=== PATIENT | female | born 1955 | race Caucasian/White ===

== ENCOUNTER 2017-03-07 09:25 | Emergency (ER) | payer SELFPAY ==
[~2017-03-07] VITALS: Ht 172.7 cm; Wt 102.1 kg
[~2017-03-07 09:25] MED LIST: ACYC800T PO; LD5O35 EXT; TRAM50TA2; [UNRECOGNIZED DRUG - CODE] SQ
--- NOTE | 2017-03-07 10:46 | ED Lower Extremity ---
General Chief Complaint: Lower Extremity Stated Complaint: POSS JAMMED KNEE Nursing Triage Note: TO ROOM PER W/C PATIENT REPORTS THAT WAS WALKING UP STAIRS AND JAMMED L KNEE NO [facility]IN [facility] Seps[facility] Screen: No Definite Risk Source: patient Exam Limitations: no limitations History of Present Illness Time seen by provider: 10:40 Initial Comments Pt was taking her dogs outside last night at 0130. While walking down her steps she "jammed" the left knee. Did not fall. Has been unable to bear weight on it since the injury. Onset: this evening Severity: moderate Method of Injury: unknown Modifying Factors: Improves With Movement Allergies and Home Medications Allergies Coded Allergies: codeine (Unverified Allergy, Severe, throat closes up, 06/27/10) aspirin (Unverified Adverse Reaction, Mild, upset stomach, 06/27/10) Constitutional: see HPI EENTM: see HPI Respiratory: no symptoms reported Cardiovascular: no symptoms reported Genitourinary: no symptoms reported Musculoskeletal: see HPI, joint pain, joint swelling Skin: no symptoms reported Past Ymjlfcy-Vacpho-Hcjgum Hx Patient Social History Alcohol Use: Denies Use Recreational Drug Use: No Smoking Status: Never a Smoker Recent Foreign Travel: No Contact w/Someone Who Travel: No Recent Infectious Disease Expo: No Surgeries History of Surgeries: No Cardiovascular History of Cardiac Disorders: No Neurological History of Neurological Disord: No Genitourinary History of Genitourinary Disor: No Gastrointestinal History of Gastrointestinal Di: No Endocrine History of Endocrine Disorders: No Integumentary History of Skin or Integumenta: No Physical Exam Vital Signs Vital Sign - Last 12Hours 03/07/17 09:45 Temp 98.2 Pulse 87 Resp 18 B/P (MAP) 118/88 (98) Pulse Ox 96 O2 Delivery Room Air Capillary Refill : Less Than 3 Seconds General Appearance: WD/WN, no apparent distress HEENT: PERRL/EOMI, normal ENT inspection Neck: non-tender, full range of motion Respiratory: no respiratory distress, no accessory muscle use Gastrointestinal: normal bowel sounds, non tender Hips: bilateral hip non-tender, bilateral hip normal inspection, bilateral hip normal range of motion Legs: bilateral leg non-tender, bilateral leg normal inspection, bilateral leg normal range of motion Knees: left knee pain, left knee soft tissue tenderness, left knee other (no swelling or obvious effusion palpable) Ankles: bilateral ankle non-tender, bilateral ankle normal inspection, bilateral ankle normal range of motion Feet: bilateral foot non-tender, bilateral foot normal inspection, bilateral foot normal range of motion Neurologic/Psychiatric: alert, normal mood/affect, oriented x 3 Skin: normal color, warm/dry Progress/Results/Core Measures Results/Orders My Orders Orders - AWILDA THOMAS APRN Knee, Left, 3 Views (03/07/17 10:23) Vital Signs/I&O Vital Sign - Last 12Hours 03/07/17 09:45 Temp 98.2 Pulse 87 Resp 18 B/P (MAP) 118/88 (98) Pulse Ox 96 O2 Delivery Room Air Blood Pressure Mean: 98 Departure Impression Impression: Primary Impression: Internal derangement of knee Disposition: HOME, SELF-CARE Condition: Stable Departure-Patient Inst. Decision time for Depature: 10:46 Referrals: RIP ARIAS MD (PCP) Primary Care Physician MICHELLE LAGUERRE DO (Family) Primary Care Physician Patient Instructions: Internal Derangement of the Knee Add. Discharge Instructions: 1. Follow up with your doctor next week to discuss obtaining MRI if the pain persists 2. crutches as needed 3. Motrin in addition to the prescribed pain medication. All discharge instructions reviewed with patient and/or family. Voiced understanding. Scripts Hydrocodone/Acetaminophen (V[place]ia 5-325 Tablet) 1 Each Tablet 1 EACH PO Q4H Y for PAIN-SEVERE TO BREAKTHROUGH, #10 TAB Prov: AWILDA THOMAS APRN 03/07/17 Work/School Note: Work Release Form Date Seen in the Emergency Department: Mar 07, 2017 Return to Work: Mar 11, 2017 Restrictions: No Restrictions AWILDA THOMAS APRN Mar 07, 2017 10:46
[2017-03-07] MEDS ORDERED: HYDR-757 PO (10:47)
--- NOTE | 2017-03-07 10:57 | Diagnostic Imaging Report ---
EXAMINATION: Three views of the left knee. INDICATION: Fall. FINDINGS: There is no fracture, dislocation or radiopaque foreign body. There is mild osteophyte formation at the medial compartment. No significant joint space loss. There is a suggestion of minimal joint effusion. IMPRESSION: Mild degenerative changes. Minimal suprapatellar effusion. Dictated by: Dictated on workstation # [id number]
--- OUTSIDE RECORDS SUMMARY | 2017-03-07 10:59 | XMS REPORT ---
Author Author JACQUELINE WEST [facility] Address [address] [place] [address] Care Team Providers Care Fur Trapper Name Role Phone JACQUELINE WEST Unavailable PROBLEMS Type Condition ICD9-CM Code [id number] Code Onset Dates Condition Status SNOMED Code Problem Chest pain, unspecified R07.9 Active 57229913 Problem Chest pain, unspecified 786.50 Active 83579902 ALLERGIES Unknown Allergies SOCIAL HISTORY No smoking Hx information available PLAN OF CARE VITAL SIGNS MEDICATIONS Medication Instructions Dosage Frequency Start Date End Date Duration Status Clindamycin HCl 150 MG Orally every 6 hrs 2 capsules 6h Oct, Nov, 10 days Active RESULTS No Results PROCEDURES No Known procedures IMMUNIZATIONS No Known Immunizations
--- OUTSIDE RECORDS SUMMARY | 2017-03-07 10:59 | XMS REPORT ---
Author Author ASHLEY BEGUM Organization [facility] Address [address] [place] [address] Care Team Providers Care System Development Engineer Name Role Phone ASHLEY BEGUM Unavailable PROBLEMS Type Condition ICD9-CM Code [id number] Code Onset Dates Condition Status SNOMED Code Problem Chest pain, unspecified 786.50 Active 88161331 Problem Dental examination Z01.20 Active 655903459 Problem Dental caries, unspecified K02.9 Active 57398547 Problem Chronic fatigue R53.82 Active 89169603 Problem Chest pain, unspecified R07.9 Active 17128559 Problem Periapical abscess without sinus K04.7 Active 049816182 Problem Gingivitis K05.10 Active 31779507 ALLERGIES Substance Reaction Event Type Date Status Wasp Venom Unknown Drug Allergy July, Active Penicillin V Potassium Unknown Drug Allergy July, Active Peanut Butter Flavor Unknown Drug Allergy July, Active Codeine Sulfate rash/SOB Drug Allergy July, Active Bee Pollen Unknown Drug Allergy July, Active Aspirin nausea/vomiting Drug Allergy July, Active Sulfa Drugs Unknown Non Drug Allergy July, Active SOCIAL HISTORY Never Assessed PLAN OF CARE Activity Details Follow Up prn Reason:TE remaining teeth VITAL SIGNS Blood pressure systolic 129 mmHg 2016-07-24 Blood pressure diastolic 86 mmHg 2016-07-24 MEDICATIONS Medication Instructions Dosage Frequency Start Date End Date Duration Status Ibuprofen 800 MG Orally Three times a day 1 tablet 8h Active Tramadol HCl 50 MG Orally every 6 hrs 1 tablet as needed 6h Jan, Active RESULTS No Results PROCEDURES Procedure Date Ordered Result Body Site LTD ORAL EVALUATION - PROBLEM FOCUS July 24, 2016 INTRAORL-PERIAPICAL 1 FILM 57915 July 24, 2016 PANORAMIC FILM SEE ALSO CODE 94756 July 24, 2016 INTRAORL-PERIAPICAL EA ADD FILM July 24, 2016 IMMUNIZATIONS No Known Immunizations MEDICAL (GENERAL) HISTORY Type Description Date Medical History arthritis Medical History Hep C-No longer detectable, went to [facility] Medical History sepsis from teeth Surgical History hysterectomy Surgical History tonsillectomy Surgical History repair of stomach lining Hospitalization History surgeries
--- OUTSIDE RECORDS SUMMARY | 2017-03-07 10:59 | XMS REPORT ---
Author Author JACQUELINE WEST Organization [employer] Address Unknown Phone Unavailable Care Team Providers Care Senior Data Warehouse Developer Name Role Phone JACQUELINE WEST CP Unavailable Allergies, Adverse Reactions, Alerts Substance Reaction Event Type Wasp Venom Info Not Available Drug Allergy Penicillin V Potassium Info Not Available Drug Allergy Peanut Butter Flavor Info Not Available Drug Allergy Codeine Sulfate rash/SOB Drug Allergy Bee Pollen Info Not Available Drug Allergy Aspirin nausea/vomiting Drug Allergy Problems Problem Type Condition Code Onset Dates Condition Status Assessment Periodontal abscess K05.21 Active Assessment Pain in left axilla M79.622 Active Problem Chest pain, unspecified 786.50 Active Medications Medication Code System Code Instructions Start Date End Date Status Dosage Ibuprofen [facility] [address]-78 800 MG Orally Three times a day 1 tablet Clindamycin HCl [facility] [address]-57 150 MG Orally every 6 hrs 2015 Oct 17, 2015 2 capsules Tramadol HCl [facility] [address]-18 50 MG Orally every 6 hrs Feb 09, 2015 1 tablet as needed Procedures Procedure Coding System Code Date Office Visit, Est Pt., Level 3 CPT-4 92477 2015 Vital Signs Date/Time: 2015 Cardiac Monitoring Heart Rate 88 bpm Weight 224.5 lbs Height 68 in Blood Pressure Diastolic 80 mmHg Blood Pressure Systolic 124 mmHg Results No Known Results Summary Purpose eClinical[employer] Submission
--- OUTSIDE RECORDS SUMMARY | 2017-03-07 10:59 | XMS REPORT ---
Author Author PARADAMARY BROWNE Organization [facility] Address [address] [place] [address] Care Team Providers Care Cloth Feeder Name Role Phone MALGORZATA PARADA Unavailable PROBLEMS Type Condition ICD9-CM Code OVV59-ZA Code Onset Dates Condition Status SNOMED Code Problem Chest pain, unspecified 786.50 Active 75174250 Problem Dental examination Z01.20 Active 630308320 Problem Dental caries, unspecified K02.9 Active 70874290 Problem Chronic fatigue R53.82 Active 73226351 Problem Chest pain, unspecified R07.9 Active 66003504 Problem Periapical abscess without sinus K04.7 Active 479519260 Problem Gingivitis K05.10 Active 90726281 ALLERGIES Substance Reaction Event Type Date Status Wasp Venom Unknown Drug Allergy May, Active Penicillin V Potassium Unknown Drug Allergy May, Active Peanut Butter Flavor Unknown Drug Allergy May, Active Codeine Sulfate rash/SOB Drug Allergy May, Active Bee Pollen Unknown Drug Allergy May, Active Aspirin nausea/vomiting Drug Allergy May, Active Sulfa Drugs Unknown Non Drug Allergy May, Active SOCIAL HISTORY Never Assessed PLAN OF CARE Activity Details Follow Up 2 Weeks Reason: VITAL SIGNS Height 68 in 2016-06-07 Weight 240 lbs 2016-06-07 Temperature 97.7 degrees Fahrenheit 2016-06-07 Heart Rate 84 bpm 2016-06-07 Respiratory Rate 20 2016-06-07 BMI 36.49 kg/m2 2016-06-07 Blood pressure systolic 128 mmHg 2016-06-07 Blood pressure diastolic 82 mmHg 2016-06-07 MEDICATIONS Medication Instructions Dosage Frequency Start Date End Date Duration Status Ibuprofen 800 MG Orally Three times a day 1 tablet 8h Active Clindamycin HCl 300 MG Orally every 8 hrs 1 capsule 8h May,Jun 10 days Active Tramadol HCl 50 MG Orally every 6 hrs 1 tablet as needed 6h Jan, Active RESULTS Name Result Date Reference Range CBC 2016-06-07 WBC 10.7 3.4-10.8 RBC 4.74 3.77-5.28 Hemoglobin 14.3 11.1-15.9 Hematocrit 41.6 34.0-46.6 MCV 88 79-97 MCH 30.2 26.6-33.0 MCHC 34.4 31.5-35.7 RDW 14.4 12.3-15.4 Platelets 321 150-379 Neutrophils 57 Lymphs 34 Monocytes 6 Eos 2 Basos 1 Immature Cells Neutrophils (Absolute) 6.0 1.4-7.0 Lymphs (Absolute) 3.7 0.7-3.1 Monocytes(Absolute) 0.7 0.1-0.9 Eos (Absolute) 0.2 0.0-0.4 Baso (Absolute) 0.1 0.0-0.2 Immature Granulocytes 0 Immature Grans (Abs) 0.0 0.0-0.1 NRBC Hematology Comments: PROCEDURES Procedure Date Ordered Result Body Site COMPLETE CBC W/AUTO DIFF WBC June 07, 2016 VENIPUNCT, ROUTINE* June 07, 2016 IMMUNIZATIONS No Known Immunizations MEDICAL (GENERAL) HISTORY Type Description Date Medical History arthritis Medical History Hep C-No longer detectable, went to [facility] Medical History sepsis from teeth Surgical History hysterectomy Surgical History tonsillectomy Surgical History repair of stomach lining Hospitalization History surgeries
--- OUTSIDE RECORDS SUMMARY | 2017-03-07 10:59 | XMS REPORT ---
Author Author MALGORZATA PARADA [facility] [employer] Address Unknown Phone Unavailable Care Team Providers Care Glass Smoother Name Role Phone MALGORZATA PARADA Unavailable Allergies No Known Allergies Problems Problem Type Condition Code Onset Dates Condition Status Problem Chest pain, unspecified 786.50 Active Assessment Breast pain N64.4 Active Problem Chest pain, unspecified R07.9 Active Medications No Known Medications Results No Known Results Summary Purpose [employer] Submission
--- OUTSIDE RECORDS SUMMARY | 2017-03-07 10:59 | XMS REPORT ---
Author Author JACQUELINE WEST Organization [employer] Address Unknown Phone Unavailable Care Team Providers Care Set Up Mechanic Stamping Machines Name Role Phone JACQUELINE WEST CP Unavailable [...] Condition Code Onset Dates Condition Status Assessment Other chest pain R07.89 Active Assessment Neck pain M54.2 Active Problem Chest pain, unspecified 786.50 Active Assessment Knee pain M25.569 Active Medications Medication Code System Code Instructions Start Date End Date Status Dosage Tramadol HCl [facility] [address]-66 50 MG Orally every 6 hrs Feb 09, 2015 1 tablet as needed Ibuprofen [facility] [address]-60 800 MG Orally Three times a day Feb 09, 2015 June 09, 2015 1 tablet Procedures Procedure Coding System Code Date Office Visit, Est Pt., Level 3 CPT-4 43887 Feb 09, 2015 Vital Signs Date/Time: Feb 09, 2015 Temperature 97.9 F Weight 229.5 lbs Height 68 in BMI 34.89 Index Blood Pressure Diastolic 82 mmHg Blood Pressure Systolic 134 mmHg Cardiac Monitoring Heart Rate 88 bpm Results No Known Results Summary Purpose [employer] Submission
--- OUTSIDE RECORDS SUMMARY | 2017-03-07 10:59 | XMS REPORT ---
Author Author JACQUELINE WEST Organization [employer] Address Unknown Phone Unavailable Care Team Providers Care Cloth Dyer Name Role Phone JACQUELINE WEST CP Unavailable [...] Problem Chest pain, unspecified 786.50 Active Assessment Chest pain, unspecified R07.9 Active Problem Chest pain, unspecified R07.9 Active Medications Medication Code System Code Instructions Start Date End Date Status Dosage Ibuprofen [facility] [address]-55 800 MG Orally Three times a day 1 tablet Tramadol HCl [facility] [address]-22 50 MG Orally every 6 hrs Feb 09, 2015 1 tablet as needed Clindamycin HCl [facility] [address]-56 150 MG Orally every 6 hrs Oct 21, 2015 Oct 31, 2015 2 capsules Procedures Procedure Coding System Code Date Office Visit, Est Pt., Level 3 CPT-4 55112 Oct 21, 2015 Vital Signs Date/Time: Oct 21, 2015 Cardiac Monitoring Heart Rate 88 bpm Weight 228.6 lbs Height 68 in BMI 34.75 Index Blood Pressure Diastolic 73 mmHg Blood Pressure Systolic 124 mmHg Results No Known Results Summary Purpose [employer] Submission
--- OUTSIDE RECORDS SUMMARY | 2017-03-07 10:59 | XMS REPORT ---
Author Author MATA Carey Organization [facility] Address Unknown Care Team Providers Care Nuclear Instructor Name Role Phone MATA Carey Unavailable PROBLEMS Type Condition ICD9-CM Code [id number] Code Onset Dates Condition Status SNOMED Code Problem Chest pain, unspecified 786.50 Active 51333536 Problem Dental examination Z01.20 Active 462704929 Problem Dental caries, unspecified K02.9 Active 29831721 Problem Chronic fatigue R53.82 Active 41566632 Problem Chest pain, unspecified R07.9 Active 94426551 Problem Periapical abscess without sinus K04.7 Active 022194388 Problem Gingivitis K05.10 Active 45228651 ALLERGIES Substance Reaction Event Type Date Status Wasp Venom Unknown Drug Allergy Jan, Active Penicillin V Potassium Unknown Drug Allergy Jan, Active Peanut Butter Flavor Unknown Drug Allergy Jan, Active Codeine Sulfate rash/SOB Drug Allergy Jan, Active Bee Pollen Unknown Drug Allergy Jan, Active Aspirin nausea/vomiting Drug Allergy Jan, Active Sulfa Drugs Unknown Non Drug Allergy Jan, Active SOCIAL HISTORY No smoking Hx information available PLAN OF CARE Activity Details Follow Up 1 Week Reason:left u/l te VITAL SIGNS Height 68 in 2016-01-25 Blood pressure systolic 136 mmHg 2016-01-25 Blood pressure diastolic 78 mmHg 2016-01-25 MEDICATIONS Medication Instructions Dosage Frequency Start Date End Date Duration Status Tramadol HCl 50 MG Orally every 6 hrs 1 tablet as needed 6h 25 Jan, 2015 Active Ibuprofen 800 MG Orally Three times a day 1 tablet 8h Active RESULTS No Results PROCEDURES Procedure Date Ordered Related Diagnosis Body Site EXTRAC ERUPTED TOOTH/EXPOSED ROOT Jan 25, 2016 EXTRAC ERUPTED TOOTH/EXPOSED ROOT Jan 25, 2016 EXTRAC ERUPTED TOOTH/EXPOSED ROOT Jan 25, 2016 EXTRAC ERUPTED TOOTH/EXPOSED ROOT Jan 25, 2016 IMMUNIZATIONS No Known Immunizations
--- OUTSIDE RECORDS SUMMARY | 2017-03-07 10:59 | XMS REPORT ---
Author Author JACQUELINE WEST [facility] [employer] Address Unknown Phone Unavailable Care Team Providers Care Laboratory Technical Specialist Name Role Phone JACQUELINE WEST CP Unavailable [...] Dates Condition Status Problem Chest pain, unspecified R07.9 Active Problem Chest pain, unspecified 786.50 Active Problem Chronic fatigue R53.82 Active Assessment Chronic fatigue R53.82 Active Medications Medication Code System Code Instructions Start Date End Date Status Dosage Tramadol HCl [facility] [address]-23 50 MG Orally every 6 hrs Feb 09, 2015 1 tablet as needed Ibuprofen [facility] [address]-50 800 MG Orally Three times a day 1 tablet Procedures Procedure Coding System Code Date ASSAY THYROID STIM HORMONE CPT-4 44752 Jan 19, 2016 COMPLETE CBC W/AUTO DIFF WBC CPT-4 71127 Jan 19, 2016 Office Visit, Est Pt., Level 3 CPT-4 61866 Jan 19, 2016 VENIPUNCT, ROUTINE* CPT-4 43150 Jan 19, 2016 COMPREHEN METABOLIC PANEL CPT-4 92221 Jan 19, 2016 Vital Signs Date/Time: Jan 19, 2016 Cardiac Monitoring Heart Rate 84 bpm Weight 231.0 lbs Height 68 in BMI 35.12 Index Blood Pressure Diastolic 82 mmHg Blood Pressure Systolic 129 mmHg Results Name Result Date Reference Range Unit Abnormality Flag CBC ----Lymphs 41 28004584 % ----Neutrophils 49 05955865 % ----Baso (Absolute) 0.1 27151639 0.0-0.2 x10E3/uL ----Hemoglobin 15.2 23493958 11.1-15.9 g/dL ----Eos (Absolute) 0.3 86626504 0.0-0.4 x10E3/uL ----Hematocrit 44.5 40038240 34.0-46.6 % ----Monocytes(Absolute) 0.5 53213461 0.1-0.9 x10E3/uL ----MCV 89 46525733 79-97 fL ----Lymphs (Absolute) 3.6 57517245 0.7-3.1 x10E3/uL H ----MCH 30.2 69533413 26.6-33.0 pg ----Neutrophils (Absolute) 4.3 01089538 1.4-7.0 x10E3/uL ----MCHC 34.2 68642687 31.5-35.7 g/dL ----Immature Granulocytes 0 91242071 % ----Basos 1 24779081 % ----RDW 14.6 04472833 12.3-15.4 % ----Immature Grans (Abs) 0.0 11969274 0.0-0.1 x10E3/uL ----WBC 8.7 63223258 3.4-10.8 x10E3/uL ----Platelets 314 91627327 150-379 x10E3/uL ----Eos 3 28508202 % ----RBC 5.03 83727857 3.77-5.28 x10E6/uL ----Monocytes 6 80815856 % CMP ----Globulin, Total 3.2 35717276 1.5-4.5 g/dL ----eGFR If Africn Am 110 46915733 >59 mL/min/1.73 ----eGFR If NonAfricn Am 95 79643778 >59 mL/min/1.73 ----Albumin, Serum 4.4 01727410 3.5-5.5 g/dL ----Sodium, Serum 142 39823708 136-144 mmol/L ----Protein, Total, Serum 7.6 62719755 6.0-8.5 g/dL ----BUN/Creatinine Ratio 26 34237766 9-23 H ----Calcium, Serum 9.6 94928429 8.7-10.2 mg/dL ----AST (SGOT) 15 34878130 0-40 IU/L ----Glucose, Serum 89 20160119 65-99 mg/dL ----Alkaline Phosphatase, S 72 20160119 39-117 IU/L ----Bilirubin, Total <0.2 20160119 0.0-1.2 mg/dL ----Creatinine, Serum 0.70 20160119 0.57-1.00 mg/dL ----A/G Ratio 1.4 20160119 1.1-2.5 ----BUN 18 20160119 6-24 mg/dL ----Carbon Dioxide, Total 23 20160119 18-29 mmol/L ----ALT (SGPT) 17 20160119 0-32 IU/L ----Potassium, Serum 4.6 20160119 3.5-5.2 mmol/L ----Chloride, Serum 100 20160119 97-106 mmol/L ROUTINE VENIPUNCTURE TSH ----TSH 1.910 12166137 0.450-4.500 uIU/mL Summary Purpose [employer]ClinicalWorks Submission
--- OUTSIDE RECORDS SUMMARY | 2017-03-07 10:59 | XMS REPORT ---
Author Author JACQUELINE WEST Organization [employer] Address Unknown Phone Unavailable Care Team Providers Care Landscape Architecture Professor Name Role Phone JACQUELINE WEST CP Unavailable Allergies No Known Allergies Problems Problem Type Condition Code Onset Dates Condition Status Problem Chest pain, unspecified 786.50 Active Problem Chest pain, unspecified R07.9 Active Medications Medication Code System Code Instructions Start Date End Date Status Dosage Bactrim DS [facility] [address]-49 800-160 MG Orally Twice a day Jan 05, 2016 Jan 15, 2016 1 tablet Results No Known Results Summary Purpose [employer] Submission
--- OUTSIDE RECORDS SUMMARY | 2017-03-07 10:59 | XMS REPORT ---
Author Author JACQUELINE WEST Organization [employer] Address Unknown Phone Unavailable Care Team Providers Care Psychiatric Lpn Name Role Phone JACQUELINE WEST CP Unavailable Allergies No Known Allergies Problems Problem Type Condition Code Onset Dates Condition Status Problem Chest pain, unspecified 786.50 Active Problem Chest pain, unspecified R07.9 Active Medications No Known Medications Results No Known Results Summary Purpose [employer] Submission
--- OUTSIDE RECORDS SUMMARY | 2017-03-07 10:59 | XMS REPORT ---
Author MATA Devine [facility] [employer] Address Unknown Phone Unavailable Care Team Providers Care Farm Manager Name Role Phone MATA MEADOWS CP Unavailable Allergies, Adverse Reactions, Alerts Substance [...] Problem Chest pain, unspecified 786.50 Active Assessment Dental examination Z01.20 Active Problem Chest pain, unspecified R07.9 Active Assessment Dental caries K02.9 Active Medications Medication Code System Code Instructions Start Date End Date Status Dosage Ibuprofen [facility] [address]-25 800 MG Orally Three times a day 1 tablet Clindamycin HCl [facility] [address]-90 150 MG Orally every 6 hrs Oct 21, 2015 Dec 05, 2015 2 capsules Tramadol HCl [facility] [address]-48 50 MG Orally every 6 hrs Feb 09, 2015 1 tablet as needed Procedures Procedure Coding System Code Date BITEWINGS - FOUR FILMS CPT-4 D0274 Dec 05, 2015 PANORAMIC FILM SEE ALSO CODE 26265 CPT-4 D0330 Dec 05, 2015 COMP ORAL EVALUATION - NEW/EST PT CPT-4 D0150 Dec 05, 2015 EXTRAC ERUPTED TOOTH/EXPOSED ROOT CPT-4 D7140 Dec 05, 2015 EXTRAC ERUPTED TOOTH/EXPOSED ROOT CPT-4 D7140 Dec 05, 2015 Billing Notes on claim CPT-4 EC109 Dec 05, 2015 Vital Signs Date/Time: Dec 05, 2015 Blood Pressure Diastolic 85 mmHg Blood Pressure Systolic 123 mmHg Height 68 in Results No Known Results Summary Purpose eClinicalWorks Submission
--- OUTSIDE RECORDS SUMMARY | 2017-03-07 10:59 | XMS REPORT ---
Author Author JACQUELINE WEST [facility] Address [address] [place] [address] Care Team Providers Care Medical Scribe Name Role Phone JACQUELINE WEST Unavailable PROBLEMS Type Condition ICD9-CM Code [id number] Code Onset Dates Condition Status SNOMED Code Problem Chest pain, unspecified 786.50 Active 21719624 Problem Dental examination Z01.20 Active 721606405 Problem Dental caries, unspecified K02.9 Active 80883229 Problem Chronic fatigue R53.82 Active 54571672 Problem Chest pain, unspecified R07.9 Active 00825520 Problem Periapical abscess without sinus K04.7 Active 051165197 Problem Gingivitis K05.10 Active 64265581 ALLERGIES No Known Allergies SOCIAL HISTORY No smoking Hx information available PLAN OF CARE VITAL SIGNS MEDICATIONS No Known Medications RESULTS No Results PROCEDURES No Known procedures IMMUNIZATIONS No Known Immunizations
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
[2017-03-07 11:13] VITALS: BP 129/62
== END 2017-03-07 11:13 | disposition home or self-care (01) ==
LOC: EDUNIT# 09:25 → ER 09:28
DX: M23.92 Unspecified internal derangement of left knee (principal)
CPT/HCPCS: 73562; 99283

== ENCOUNTER 2017-03-23 02:58 | Emergency (ER) | payer SELFPAY ==
[~2017-03-23] VITALS: Ht 172.7 cm; Wt 104.3 kg
[~2017-03-23 02:58] MED LIST changes: +HYDR-757 PO
--- NOTE | 2017-03-23 03:27 | ED Cough/URI ---
General Chief Complaint: Cough/Cold/Flu Symptoms Stated Complaint: THROAT SWOLLEN Nursing Triage Note: C/O COUGH FOR 12 HOURS. Source: patient History of Present Illness Time seen by provider: 03:15 Initial Comments PT STATES SHE WAS SENT HOME FROM WORK TODAY AT [employer], WITH SUBJECTIVE FEVER AND CHILLS WOKE UP AROUND 2130 COUGHING AND COUGHS SO HARD IT FEELS LIKE HER THROAT IS CLOSING OFF NO ACTUAL THROAT PAIN, JUST FEELS DRY NO CHEST PAIN OR SHORTNESS OF BREATH NO HEADACHE OR BODY ACHES MULTIPLE SICK CONTACTS WITH SAME HAS NOT TAKEN ANYTHING FOR SYMPTOMS PT SMOKES UP TO 3 PPD DENIES BEING DX WITH COPD OR ASTHMA OR ANY RESPIRATORY DISORDERS PCP: REMBERTO-W[facility], COURTNEY WEST Allergies and Home Medications Allergies Coded Allergies: codeine (Unverified Allergy, Severe, throat closes up, 06/27/10) aspirin (Unverified Adverse Reaction, Mild, upset stomach, 06/27/10) Home Medications Benzonatate 100 Mg Capsule, 1-2 TAB PO TID, #30 Prescribed by: LANIE SHELTON on 03/23/17419 Doxycycline Monohydrate 100 Mg Capsule, 100 MG PO BID, #20 Prescribed by: LANIE SHELTON on 03/23/17 0420 Guaifenesin/Dextromethorphan 1 Each Tbmp.12hr, 1 EACH PO BID for 10 Days, #20 Prescribed by: LANIE SHELTON on 03/23/17 0420 Hydrocodone/Acetaminophen 1 Each Tablet, 1 EACH PO Q4H PRN for PAIN-SEVERE TO BREAKTHROUGH, #10 Prescribed by: AWILDA THOMAS on 03/07/17 1047 Methylprednisolone 4 Mg Tab.ds.pk, 4 MG PO UD, #1 Prescribed by: LANIE SHELTON on 03/23/17 0420 Constitutional: see HPI, chills, fever EENTM: see HPI, nose congestion, other (PER HPI) Respiratory: see HPI, cough, No short of breath, No wheezing Cardiovascular: no symptoms reported Gastrointestinal: no symptoms reported Genitourinary: no symptoms reported Musculoskeletal: no symptoms reported Skin: no symptoms reported Psychiatric/Neurological: No Symptoms Reported Hematologic/Lymphatic: No Symptoms Reported Immunological/Allergic: no symptoms reported Past Iajsqcj-Tmintt-Lnrqsh Hx Patient Social History Alcohol Use: Denies Use Recreational Drug Use: No Smoking Status: Current Everyday Smoker (UP TO 3 PPD) Type Used: Cigarettes Recent Foreign Travel: No Contact w/Someone Who Travel: No Recent Infectious Disease Expo: No Physical Abuse: No Sexual Abuse: No Surgeries History of Surgeries: No Respiratory History of Respiratory Disorde: No Cardiovascular History of Cardiac Disorders: No Neurological History of Neurological Disord: No Reproductive System RANGE CONSERVATIONIST History: Menopausal Genitourinary History of Genitourinary Disor: No Gastrointestinal History of Gastrointestinal Di: No Musculoskeletal History of Musculoskeletal Dis: No Endocrine History of Endocrine Disorders: No HEENT History of HEENT Disorders: Yes ("BAD TEETH" ) Cancer History of Cancer: No Psychosocial History of Psychiatric Problem: No Suicide Risk Score: 0 Integumentary History of Skin or Integumenta: No Blood Transfusions History of Blood Disorders: No Physical Exam Vital Signs Vital Sign - Last 12Hours 03/23/17 03:13 Temp 97.0 Pulse 87 Resp 20 B/P (MAP) 132/75 (94) Pulse Ox 98 Capillary Refill : Less Than 3 Seconds General Appearance: WD/WN, no apparent distress, other (FREQUENT HARSH, DRY COUGH) HEENT: PERRL/EOMI, other (TM'S OBSCURED BY CERUMEN, MILD NASAL MUCOSAL EDEMA, CLEAR POST NASAL DRAINAGE; POOR DENTITION WITH MULTIPLE MISSING TEETH AND EXTENSIVE DENTAL DECAY TO REMAINING TEETH) Neck: full range of motion, supple, normal inspection Respiratory: normal breath sounds, no respiratory distress, no accessory muscle use Cardiovascular: regular rate, rhythm, no edema, no murmur Gastrointestinal: normal bowel sounds, non tender, soft Extremities: normal inspection, no pedal edema Neurologic/Psychiatric: certified physician assistant II-XII nml as tested, no motor/sensory deficits, alert, oriented x 3 Skin: normal color Progress/Results/Core Measures Suspected Sepsis Recent Fever Within 48 Hours: No Infection Criteria Present: None New/Unexplained Altered Menta: No Sepsis Screen: No Definite Risk Sepsis Diagnosis: SIRS Temperature:97.0 Pulse: 87 Respiratory Rate: 20 Blood Pressure 132 /75 Mean: 94 Results/Orders Micro Results Microbiology 03/23/17 Influenza Types A,B Antigen (ELISE) - Final, Complete My Orders Orders - LANIE SHELTON DO Influenza A And B Antigens (03/23/17 03:14) Rx-Doxycycline Tablet (Rx-Vibramycin Tab (03/23/17 04:21) Benzonatate Capsule (Tessalon Perles) (03/23/17 09:00) Vital Signs/I&O Vital Sign - Last 12Hours 03/23/17 03:13 Temp 97.0 Pulse 87 Resp 20 B/P (MAP) 132/75 (94) Pulse Ox 98 Capillary Refill : Less Than 3 Seconds Blood Pressure Mean: 94 Progress Note : Progress Note FLU SCREEN-- NEGATIVE Departure Impression Impression: Primary Impression: Bronchitis Additional Impression: Upper respiratory infection Disposition: HOME, SELF-CARE Condition: Stable Departure-Patient Inst. Referrals: RIP ARIAS MD (PCP) Primary Care Physician JACQUELINE WEST (Family) Primary Care Physician Patient Instructions: Acute Bronchitis, Adult (DC), Bacterial Upper Respiratory Infection, Adult (DC) Add. Discharge Instructions: LOTS OF CLEAR LIQUIDS TYLENOL AND MOTRIN NEEDED FOR PAIN OR FEVER F/U WITH [facility] IN 3-4 DAYS IF NO BETTER All discharge instructions reviewed with patient and/or family. Voiced understanding. Scripts Benzonatate (Tessalon Perle) 100 Mg Capsule 1-2 TAB PO TID for Cough, #30 CAP Prov: LAINE SHELTON DO 03/23/17 Guaifenesin/Dextromethorphan (Mucinex Dm ER 1,200-60 mg Tab) 1 Each Tbmp.12hr 1 EACH PO BID for 10 Days, #20 EA Prov: LANIE SHELTON DO 03/23/17 Methylprednisolone (Medrol) 4 Mg Tab.ds.pk 4 MG PO UD, #1 PKG Prov: LANIE SHELTON DO 03/23/17 Doxycycline Monohydrate (Doxycycline Monohydrate) 100 Mg Capsule 100 MG PO BID, #20 CAP Prov: LANIE SHELTON DO 03/23/17 Work/School Note: Work Release Form Date Seen in the Emergency Department: Mar 23, 2017 Return to Work: Mar 26, 2017 Restrictions: No Restrictions LANIE SHELTON DO Mar 23, 2017 03:27
--- OUTSIDE RECORDS SUMMARY | 2017-03-23 03:49 | XMS REPORT | Continuity of Care Document ---
Author Author [facility] Organization [facility] Address Unknown Phone Unavailable Allergies Active Description Code Type Severity Reaction Onset Reported/Identified Relationship to Patient Clinical Status Yes aspirin Drug Allergy N/A N/A 10/11/2009 Yes codeine Drug Allergy N/A N/A 10/11/2009 Yes Penicillins Drug Allergy N/A N/A 10/11/2009 Yes aspirin Drug Allergy 10/11/2009 Yes codeine Drug Allergy 10/11/2009 Yes Penicillins Drug Allergy 10/11/2009 Yes aspirin [id number] Drug Allergy Mild upset stomach 06/27/2010 Yes codeine [id number] Drug Allergy Severe throat closes u 06/27/2010 [...] REFLUX 11/02/2015 Ot 553.3 DIAPHRAGMATIC HERNIA 11/02/2015 JENNA, JACQUELINE T [employer] Ot 553.3 DIAPHRAGMATIC HERNIA 11/02/2015 JACQUELINE WEST [employer] Ot 787.22 DYSPHAGIA, OROPHARYNGEAL PHASE 11/17/2015 TALPEGGYMALGORZATA Julio [employer] Ot N64.4 MASTODYNIA 03/07/2017 THOMASAWILDA PFEIFFER BLAIRE Ot M23.92 UNSPECIFIED INTERNAL DERANGEMENT OF LEFT 03/07/2017 JACQUELINE WEST [employer] Ot 553.3 DIAPHRAGMATIC HERNIA 03/07/2017 JENNA JACQUELINE Jet [employer] Ot 787.22 DYSPHAGIA, OROPHARYNGEAL PHASE 03/07/2017 MALGORZATA PARADA [employer] Ot N64.4 MASTODYNIA Procedures Code Description [place] [address] ROUTINE VENIPUNCTURE 01/18/2012 45311 CBC 01/18/2012 37000 CMP 01/18/2012 [id number] GFR CALC (RESULT ONLY) 01/18/2012 47709 PT/INR 01/19/2012 53543 URIC ACID 01/19/2012 26906 T4 01/19/2012 91409 HEP C PCR QUANT (SERIAL) 01/22/2012 57403 ROUTINE VENIPUNCTURE 02/28/2012 27120 CBC 02/28/2012 73458 CMP 02/28/2012 [id number] GFR CALC (RESULT ONLY) 02/28/2012 00866 PT/INR 02/29/2012 49032 PTT (THROMBOPLASTIN TIME, PARTIAL) 02/29/2012 77377 HEP C PCR QUANT (SERIAL) 02/29/2012 64823 XRAY CHEST 2 VIEW 03/12/2012 93170 ROUTINE VENIPUNCTURE 04/02/2012 96364 CBC 04/02/2012 22090 CMP 04/02/2012 60911 LIPID PANEL 04/02/2012 3462949 GFR CALC (RESULT ONLY) 04/02/2012 42024 CRP HS (CARDIO) 04/02/2012 38951 EKG, TRACING (IN-HOUSE) 04/02/2012 24713 ROUTINE VENIPUNCTURE 05/23/2012 13324 CBC 05/23/2012 51210 CMP 05/23/2012 0013292 GFR CALC (RESULT ONLY) 05/23/2012 76288 PT/INR 05/23/2012 05867 HEP C PCR QUANT (SERIAL) 05/27/2012 02259 ROUTINE VENIPUNCTURE 06/23/2014 18285 EKG, TRACING (IN-HOUSE) 06/23/2014 90438 BARIUM SWALLOW XRAY 06/23/2014 65745 TSH 06/23/2014 50151 A1C (IN-HOUSE) 06/23/2014 45345 CBC 06/23/2014 4417366 GFR CALC (RESULT ONLY) 06/23/2014 82192 CMP 06/23/2014 62037 LIPID PANEL 06/23/2014 Results There is no data. Encounters ACCT No. Visit Date/Time Discharge Status Pt. Type Provider Facility Loc./Unit Complaint [id number] 03/07/2017 09:28:00 03/07/2017 11:13:00 DIS Emergency AWILDA THOMAS APRN [facility] ER POSS JAMMED KNEE [id number] 11/02/2015 14:21:00 11/02/2015 23:59:59 CLS Outpatient MALGORZATA PARADA [facility] RAD BREAST PAIN [id number] 06/29/2014 10:36:00 06/29/2014 23:59:59 CLS Outpatient JACQULEINE WEST [facility] RAD DYSPHAGIA OROPHARYNGEAL CHEST PAIN [id number] 06/29/2014 09:47:00 Document Registration [id number] 06/29/2014 09:47:00 Document Registration [id number] 12/26/2011 13:12:00 Document Registration [id number] 11/03/2010 09:49:00 Document Registration [id number] 10/31/2010 07:48:00 Document Registration [id number] 07/31/2010 10:39:00 Document Registration [id number] 07/03/2010 12:47:00 Document Registration [id number] 06/27/2010 21:38:00 Document Registration [id number] 06/27/2010 08:14:00 Document Registration [id number] 12/07/2009 15:51:00 Document Registration [id number] 12/07/2009 11:53:00 Document Registration [id number] 06/23/2014 09:58:00 06/23/2014 23:59:59 CLS Outpatient JACQUELINE WEST APRN [id number] 05/23/2012 12:01:00 05/23/2012 23:59:59 CLS Outpatient RIP ARIAS MD [id number] 04/21/2012 07:09:00 04/21/2012 23:59:59 CLS Outpatient [id number] 04/02/2012 07:57:00 04/02/2012 23:59:59 CLS Outpatient JACQUELINE WEST APRN [id number] 03/12/2012 18:04:00 03/12/2012 23:59:59 CLS Outpatient [id number] 02/29/2012 08:54:00 02/29/2012 23:59:59 CLS Outpatient [id number] 01/18/2012 11:37:00 01/18/2012 23:59:59 CLS Outpatient RIP ARIAS MD
[2017-03-23] MEDS ORDERED: DOXY100C42 PO (04:20)
[2017-03-23] MEDS ORDERED: BENZ-13 PO (04:20)
[2017-03-23] MEDS ORDERED: GUAI1TBM19 PO (04:20)
[2017-03-23] MEDS ORDERED: METH4TAB PO (04:20)
[2017-03-23] MEDS ORDERED: RX-DOXYCYCLINE 100 MG (VIBRAMYCIN) TAB PPK#2 PO STA (04:21)
[2017-03-23] MEDS ORDERED: BENZONATATE 100 MG (TESSALON) CAPSULE PO ONE (04:31)
[2017-03-23 04:35] VITALS: BP 132/75
[2017-03-23] MEDS ORDERED: BENZONATATE 100 MG (TESSALON) CAPSULE PO SCH (09:00)
== END 2017-03-23 04:35 | disposition home or self-care (01) ==
LOC: EDUNIT# 02:58 → ER 03:01
DX: J40 Bronchitis, not specified as acute or chronic (principal); J06.9 Acute upper respiratory infection, unspecified; F17.210 Nicotine dependence, cigarettes, uncomplicated
CPT/HCPCS: 87804; 99283

== ENCOUNTER → 2018-08-08 | Outpatient (CLI) | payer OTHER ==
[~2018-08-08] MED LIST changes: +BENZ100C18 PO; +DOXY100C42 PO; +GUAI1TBM19 PO; +HYDR-4226 PO; -HYDR-757 PO; +METH4TAB PO
--- NOTE | 2018-08-08 17:43 | Diagnostic Imaging Report ---
INDICATION: Palpable lump in left breast reported by nurse practitioner. Patient denies a palpable lump at this time. COMPARISON: Correlation is made with prior mammogram from 11/02/2015 and 07/03/2010. EXAMINATION: 2D and 3D bilateral diagnostic mammography was performed with CAD. The current study was also evaluated with a Computer Aided Detection (CAD) system. FINDINGS: Both breasts are primarily involutional. There is an intramammary lymph node in the upper outer left breast posterior depth, stable. No mass or malignant appearing microcalcifications are seen. Axillae are unremarkable. IMPRESSION: The breasts are fatty replaced. No suspicious mass or malignant appearing microcalcifications are seen. ACR BI-RADS Category 2: Benign findings. Result letter will be mailed to the patient. Note: At least 10% of breast cancer is not imaged by mammography. Dictated by: Dictated on workstation # [id number]
== END ==
LOC: RAD 09:31
PROVIDERS: ATTEND Nurse Practitioner Community Health
DX: N63.20 Unspecified lump in the left breast, unspecified quadrant (principal)
CPT/HCPCS: 77066

== ENCOUNTER → 2019-10-23 | Outpatient (CLI) | payer SELFPAY ==
[~2019-10-23] MED LIST changes: +CATHETER FLUSH 10 ML SYR IV PRN; +HOLD METFORMIN - RECEIVED CONTRAST 20 ML VIAL IV SCH; +IOHEXOL 350 MG/ML 100 ML (OMNIPAQUE 350) VIAL IV ONE; +NS 100 ML (IVPB) BAG IV ONE
--- NOTE | 2019-10-23 12:15 | Diagnostic Imaging Report ---
EXAMINATION: CT Chest with intravenous contrast. TECHNIQUE: Multiple contiguous axial images were obtained through the chest after the uneventful administration of intravenous contrast. All CT scans use one or more of the following dose optimizing techniques: automated exposure control, MA and/or KvP adjustment based on a patient size and exam type, or iterative reconstruction. HISTORY: Shortness of breath on exertion COMPARISON: None available. FINDINGS: There is no edema or pneumonia. No pleural effusion. No pneumothorax. No suspicious nodules. There is a large left thyroid nodule measuring 3.0 x 1.4 cm extending into the superior mediastinum. There is no axillary or supraclavicular lymphadenopathy. There is no mediastinal lymphadenopathy. Heart size is normal. There are no coronary artery calcifications. No pericardial effusion. Aorta is normal in caliber. Limited views of the upper abdomen show calcified granulomas in the spleen. There are no suspicious osseus lesions. IMPRESSION: 1. No acute abnormality in the chest. 2. Left thyroid nodule, sonogram is recommended for further evaluation. However, this may be difficult to see on ultrasound as it extends into the superior mediastinum. Dictated by: Dictated on workstation # [id number]
== END ==
LOC: RAD 10:46
PROVIDERS: ATTEND Nurse Practitioner Community Health
DX: E04.1 Nontoxic single thyroid nodule (principal); R06.02 Shortness of breath
CPT/HCPCS: 71260

== ENCOUNTER → 2020-09-12 | Outpatient (CLI) | payer OTHER ==
[~2020-09-12] MED LIST changes: -CATHETER FLUSH 10 ML SYR IV PRN; +CHOL500050 PO; +CLOP75TA28 PO; +DOXY-311 PO; -DOXY100C42 PO; +HEParin (CATH LAB) 2,000 ML IV ONE; -HOLD METFORMIN - RECEIVED CONTRAST 20 ML VIAL IV SCH; +IBUP-1780 PO; -IOHEXOL 350 MG/ML 100 ML (OMNIPAQUE 350) VIAL IV ONE; +LIDOCAINE 1% INJ 20 ML 20 ML VIAL ONE; +METO50TA7 PO; -NS 100 ML (IVPB) BAG IV ONE; +NS IV 1000 ML 1,000 ML ONE
== END ==
LOC: CARD 14:30
PROVIDERS: ATTEND Internal Medicine Cardiovascular Disease
DX: R06.09 Other forms of dyspnea (principal)
CPT/HCPCS: 93306

== ENCOUNTER → 2020-09-13 10:55 | Day surgery (SDC) | payer OTHER ==
[~2020-09-13] VITALS: Ht 172 cm; Wt 116.0 kg
[2020-09-13 09:20] VITALS: BP 148/86
[2020-09-13 09:36] LABS: HEMATOCRIT 49 % (35-52); HEMOGLOBIN 16.3 g/dL (11.5-16.0); MEAN CORPUSCULAR HEMOGLOBIN 30 pg (25-34); MEAN CORPUSCULAR HGB CONC 33 g/dL (32-36); MEAN CORPUSCULAR VOLUME 89 fL (80-99); MEAN PLATELET VOLUME 10.2 fL (9.0-12.2); PLATELET COUNT 324 10^3/uL (130-400)
[2020-09-13 09:44] LABS: INR 0.9 (0.8-1.4); PROTHROMBIN TIME PATIENT 12.7 SEC (12.2-14.7)
[2020-09-13 09:51] LABS: ALANINE AMINOTRANSFERASE 29 U/L (0-55); ALBUMIN 4.1 GM/DL (3.2-4.5); ALKALINE PHOSPHATASE 65 U/L (40-136); BILIRUBIN,TOTAL 0.3 MG/DL (0.1-1.0); BUN/CREATININE RATIO 22; CALCIUM 9.4 MG/DL (8.5-10.1); CARBON DIOXIDE 24 MMOL/L (21-32); CHLORIDE 106 MMOL/L (98-107); CHOLESTEROL 213 MG/DL (< 200); CREATININE SERUM 0.77 MG/DL (0.60-1.30); GFR ESTIMATED > 60; GLUCOSE 116 MG/DL (70-105); HDL CHOLESTEROL 46 MG/DL (40-60); POTASSIUM 4.3 MMOL/L (3.6-5.0); SODIUM 139 MMOL/L (135-145); TOTAL PROTEIN 7.4 GM/DL (6.4-8.2); TRIGLYCERIDES 136 MG/DL (<150); VLDL CHOLESTEROL 27 MG/DL (5-40)
[~2020-09-13 10:55] MED LIST changes: -HEParin (CATH LAB) 2,000 ML IV ONE; -LIDOCAINE 1% INJ 20 ML 20 ML VIAL ONE; +NS IV 1000 ML 1,000 ML IV SCH; -NS IV 1000 ML 1,000 ML ONE
== END | disposition home or self-care (01) ==
LOC: CATH 10:55
PROVIDERS: ATTEND Internal Medicine Cardiovascular Disease
DX: R00.2 Palpitations (principal); R06.02 Shortness of breath; R07.2 Precordial pain; R53.83 Other fatigue; G47.30 Sleep apnea, unspecified; F41.9 Anxiety disorder, unspecified; J98.4 Other disorders of lung; F17.210 Nicotine dependence, cigarettes, uncomplicated; Z82.49 Family history of ischemic heart disease and other diseases of the circulatory system; Z79.899 Other long term (current) drug therapy; Z79.02 Long term (current) use of antithrombotics/antiplatelets; Z53.29 Procedure and treatment not carried out because of patient's decision for other reasons
CPT/HCPCS: 36415; 80053; 80061; 85027; 85610; 85730; 87081

== ENCOUNTER 2020-10-11 12:00 | Day surgery (SDC) | payer OTHER ==
[~2020-10-11] VITALS: Ht 172 cm; Wt 116.0 kg
[2020-10-11] VITALS (8 sets, daily range): BP systolic 102–123; BP diastolic 39–70
[2020-10-11 10:54] LABS: HEMATOCRIT 45 % (35-52); HEMOGLOBIN 15.4 g/dL (11.5-16.0); MEAN CORPUSCULAR HEMOGLOBIN 30 pg (25-34); MEAN CORPUSCULAR HGB CONC 34 g/dL (32-36); MEAN CORPUSCULAR VOLUME 88 fL (80-99); MEAN PLATELET VOLUME 10.2 fL (9.0-12.2); PLATELET COUNT 330 10^3/uL (130-400); WHITE BLOOD COUNT 9.8 10^3/uL (4.3-11.0)
[2020-10-11 11:02] LABS: INR 0.9 (0.8-1.4); PROTHROMBIN TIME PATIENT 12.9 SEC (12.2-14.7)
[2020-10-11 11:07] LABS: ALBUMIN 4.1 GM/DL (3.2-4.5); BILIRUBIN,TOTAL 0.3 MG/DL (0.1-1.0); CALCIUM 9.5 MG/DL (8.5-10.1); CREATININE SERUM 0.79 MG/DL (0.60-1.30); POTASSIUM 4.3 MMOL/L (3.6-5.0); TOTAL PROTEIN 7.7 GM/DL (6.4-8.2)
[~2020-10-11 12:00] MED LIST changes: +HEParin (CATH LAB) 2,000 ML IV ONE; +LIDOCAINE 1% INJ 20 ML 20 ML VIAL ONE; +NS IV 1000 ML 1,000 ML ONE; +RT-ALBUINH IH
--- NOTE | 2020-10-11 12:14 | Cardiac Procedure Note-CS/ASA ---
Pre-Procedure Note Pre-Op Procedure Note H&P Reviewed The H&P was reviewed, patient examined and no changes noted. Date H&P Reviewed: Oct 11, 2020 Time H&P Reviewed: 11:45 Conscious Sedation Pre-Proced Time 11:45 ASA Score 3 For ASA 3 and 4: Consider anesthesia and medical clearance. Also, for patients with a history of failed moderate sedation consider anesthesia. Airway Lungs Heart ASA score ASA 1: a normal healthy patient ASA 2: a patient with a mild systemic disease (mid diabetes, controlled hypertension, obesity ASA 3: a patient with a severe systemic disease that limits activity (angina, COPD, prior Myocardial infarction) ASA 4: a patient with an incapacitating disease that is a constant threat to life (CHF, renal failure) ASA 5: a moribund patient not expected to survive 24 hrs. (ruptured aneurysm) ASA 6: a declared brain- patient whose organs are being harvested. For emergent operations, add the letter E after the classification Mallampati Classification Grade 2 Sedation Plan Analgesia, Amnesia, Plan communicated to team members, Discussed options with patient/fam, Discussed risks with patient/fam The patient is an appropriate candidate to undergo the planned procedure, sedation, and anesthesia. The patient immediately re-assessed prior to indication. KENDAL LANE MD FACP FAC CCDS Oct 11, 2020 12:14
[2020-10-11] MEDS ORDERED: PATIENT MAY USE OWN MEDS, ALL PO SCH (12:15)
[2020-10-11] MEDS ORDERED: NS IV 1000 ML 1,000 ML IV SCH (12:15)
--- NOTE | 2020-10-11 12:17 | Discharge Inst-Post CATH ---
Discharge Inst-CATH/EP Post Cardiac Cath/EP D/C Inst Follow Up/Plan F/u with Dr Mitchell in 2-3 weeks ACTIVITY * Go Home directly and rest. * Limit activity of the leg (or wrist if it was used) for 7 days including aerobics, swimming, jogging, bicycling, etc. * Restrict stair-climbing for 7 days if possible, if not, climb up with your non-cath leg, then bring together on the same step. * Avoid lifting, pushing, pulling or excessive movement of the affected extremity for 7 days. * Customary sexual activity may be resumed after 2 days-use caution not to use a position that strains or causes pain to the affected extremity. * No driving for 24 hours. * NO SMOKING. * Avoid straining for bowel movements for 7 days. * Gentle walking on level ground is allowed. * Returning to work will depend on the type of procedure and the results. Your doctor will discuss this with you. CALL YOUR DOCTOR FOR ANY OF THE FOLLOWING: *If bleeding from the puncture site occurs- Apply gentle pressure to site with clean cloth and call your doctor or EMS. * If a knot or lump forms under the skin, increases in size, or causes pain. * If bruising appears to be worsening or moving further down your leg instead of disappearing. * Temperature above 101 F. CARE OF YOUR GROIN INCISION; * Bruising or purple discoloration of the skin near the puncture site is common. * You may shower only, no bathtub bathing for 5 days. Be careful to avoid slipping as your leg may feel stiff. * If a closure device was used on your femoral artery, please see the attached guide regarding care of the device and your leg. * Leave dressing on FOR 24 hours. CARE OF YOUR WRIST INCISION; * Bruising or purple discoloration of the skin near the puncture site is common. * You may shower. * DO NOT submerge wrist. * Leave dressing on FOR 24 hours. KENDAL MITCHELL MD [facility] CCDS Oct 11, 2020 12:17
--- NOTE | 2020-10-11 12:18 | Discharge Inst-Cardiology ---
Discharge Inst-Cardiac Discharge Medications Continued Medications: Albuterol Sulfate (Proair Hfa) 1 Puff Puff 2 PUFF IH UD, PUFF 1 PUFF = 90 MCG Cholecalciferol (Vitamin D3) (Vitamin D3) 125 Mcg Capsule 125 MCG PO DAILY, CAP Metoprolol Succinate (Metoprolol Succinate) 50 Mg Tab.er.24h 50 MG PO DAILY, TAB Discontinued Medications: Clopidogrel Bisulfate (Clopidogrel) 75 Mg Tablet 75 MG PO DAILY, TAB KENDAL LANE MD FACP FAC CCDS Oct 11, 2020 12:18
--- NOTE | 2020-10-11 14:36 | CARDIAC CATHETERIZATION ---
DATE OF SERVICE: 10/11/2020 CARDIAC CATHETERIZATION REPORT INDICATION FOR PROCEDURE: Annie is a 65-year-old lady with multiple coronary artery disease risk factors, who reports symptoms consistent with unstable angina. Cardiac catheterization was recommended after having obtained an informed consent. DESCRIPTION OF PROCEDURE: She was brought to the cardiac catheterization laboratory in a fasting state. Right groin was prepared and draped in the usual sterile fashion. Lidocaine 1% was used for local anesthesia. Modified Seldinger technique was used to advance a 5-[place] sheath into the right femoral artery, 5-[place] JL4 catheter was used for left coronary angiography, 5-[place] JR4 catheter was used for right coronary angiography, 5-[place] pigtail catheter was used for left heart catheterization and left ventricular angiography. Angiography of the right femoral artery was carried out through the sheath and Mynx was used to achieve hemostasis following sheath removal at the end of the procedure. The patient tolerated the procedure well. HEMODYNAMICS: Left ventricular end-diastolic pressure following coronary angiography was 23 mmHg. There was no significant pressure gradient on pullback across the aortic valve. Ascending aortic pressure was 105/64 with a mean 84 mmHg. CORONARY ANGIOGRAPHY: Left main coronary artery, left anterior descending artery, left circumflex artery, and right coronary artery do not exhibit any angiographically significant coronary artery disease. Right coronary artery is dominant. LEFT VENTRICULAR ANGIOGRAPHY: Left ventricular angiography was carried out in the right anterior oblique projection. Global left ventricular systolic function is normal. Left ventricular ejection fraction is approximately 60 percent. No distinct regional wall motion abnormality is seen in this view. CONCLUSIONS: 1. No angiographically significant coronary artery disease on the study. 2. Normal global left ventricular systolic function with ejection fraction approximately 65%. 3. Elevated left ventricular end-diastolic pressure. DISCUSSION AND RECOMMENDATIONS: Based on the results of the study, it appears appropriate to continue a conservative approach. Risk factor modification has been reviewed. Outpatient followup is advised. Job ID: [id number] DocumentID: [id number] Dictated Date: 10/11/2020 12:22:07 Case Consultant Date: 10/11/2020 14:35:46 Dictated By: KENDAL LANE MD, MA, FACP, FACC,
== END 2020-10-11 15:18 | disposition home or self-care (01) ==
LOC: SDC 12:25 → CATH 15:18
PROVIDERS: ATTEND Internal Medicine Cardiovascular Disease
DX: R07.89 Other chest pain (principal); R00.2 Palpitations; R06.02 Shortness of breath; R06.09 Other forms of dyspnea; F41.9 Anxiety disorder, unspecified; F17.210 Nicotine dependence, cigarettes, uncomplicated; Z79.899 Other long term (current) drug therapy
CPT/HCPCS: 80053; 80061; 85027; 85610; 85730; 93458; C1760; C1894; 36415

== ENCOUNTER → 2021-09-22 | Outpatient (CLI) | payer MEDICARE, MEDICAID, OTHER ==
[~2021-09-22] MED LIST changes: -HEParin (CATH LAB) 2,000 ML IV ONE; -LIDOCAINE 1% INJ 20 ML 20 ML VIAL ONE; -NS IV 1000 ML 1,000 ML IV SCH; -NS IV 1000 ML 1,000 ML ONE
== END ==
LOC: CARD 09-21 13:30
PROVIDERS: ATTEND Nurse Practitioner Family
DX: R00.2 Palpitations (principal)
CPT/HCPCS: 93225; 93226